=== PATIENT | female | born 2000 | race Hispanic/Latino ===

== ENCOUNTER 2021-12-20 18:19 | Emergency (ER) | payer MEDICAID ==
[~2021-12-20] VITALS: Ht 162.6 cm; Wt 93.9 kg
[2021-12-20 18:20] VITALS: BP 123/75
[2021-12-20 18:41] LABS: BILIRUBIN,URINE Negative (NEGATIVE); COLOR,URINE Yellow (YELLOW); GLUCOSE, URINE (UA) Negative (NEGATIVE); KETONES,URINE Trace mg/dL (NEGATIVE); LEUKOCYTE ESTERASE ,URINE Moderate (NEGATIVE); NITRATE,URINE Negative (NEGATIVE); OCCULT BLOOD,URINE Negative (NEGATIVE); PROTEIN,URINE Negative (NEGATIVE)
[2021-12-20 18:45] LABS: APPEARANCE,URINE SLIGHTLY CLOUDY (CLEAR)
[2021-12-20] MEDS ORDERED: CEFTRIAXONE 1G VIAL IM ONE (19:00)
[2021-12-20] MEDS ORDERED: PHENAZOPYRIDINE HCL 200 MG TABLET PO ONE (19:00)
[2021-12-20] MEDS ORDERED: LIDOCAINE HCL-MPF 1% 2ML VIAL ONE (19:28)
[2021-12-20 19:29] LABS: BACTERIA,URINE Moderate /HPF (None Seen); MUCUS,URINE Rare LPF (None Seen); RBC,URINE 0-1 /HPF (0-1); SQUAMOUS EPITHELIAL CELL,UR Moderate /HPF (0-2)
[2021-12-20 19:30] LABS: BASOPHILS % (AUTO) 0.1 % (0.0-5.0); EOSINOPHILS % (AUTO) 0.9 % (0.0-8.0); HEMATOCRIT 38.8 % (36-48); LYMPHOCYTES % (AUTO) 22.2 % (21.0-51.0); MEAN CORPUSCULAR HEMOGLOBIN 28.4 pg (27.0-33.0); MEAN CORPUSCULAR VOLUME 86.2 fL (79-99); MONOCYTES % (AUTO) 7.5 % (3.0-13.0); NEUTROPHILS % (AUTO) 68.7 % (40.0-77.0); PLATELET COUNT (AUTO) 330 K/uL (130-400); RED CELL DISTRIBUTION WIDTH 13.9 % (11.0-15.5); WHITE BLOOD COUNT (AUTO) 8.7 K/uL (4.8-10.8)
[2021-12-20 19:42] LABS: ALBUMIN 3.2 g/dL (3.5-5.0); BILIRUBIN,TOTAL 0.2 mg/dL (0.2-1.0); CREATININE 0.6 mg/dL (0.5-1.5); CRP QUANTITATIVE 15.8 mg/L (0.00-9.0); POTASSIUM 4.3 mmol/L (3.5-5.1); TOTAL PROTEIN, SERUM 7.2 g/dL (6.0-8.3)
[2021-12-20] MEDS ORDERED: CEPH500B PO (19:54)
[2021-12-20] MEDS ORDERED: PREN-61 PO (19:54)
[2021-12-20] MEDS ORDERED: PHEN-775 PO (19:54)
== END 2021-12-20 20:22 | disposition home or self-care (01) ==
LOC: EDH 18:19
DX: O23.42 Unspecified infection of urinary tract in pregnancy, second trimester (principal); Z3A.15 15 weeks gestation of pregnancy; Z87.442 Personal history of urinary calculi
CPT/HCPCS: 36415; 76805; 80053; 81001; 84702; 84703; 85025; 86140; 87077; 87088; 87186; 96372; 99284; J0696; J3490

== ENCOUNTER 2024-03-25 13:20 | Emergency (ER) | payer MEDICAID, OTHER ==
[~2024-03-25] VITALS: Ht 162.6 cm; Wt 99.8 kg
[~2024-03-25 13:20] MED LIST: CEPH500B PO; PHEN-775 PO; PREN-61 PO
[2024-03-25 13:33] VITALS: BP 134/77; PULSE 73; RESP 16
[2024-03-25 14:30] LABS: APPEARANCE,URINE CLEAR (CLEAR); BILIRUBIN,URINE NEGATIVE (NEGATIVE); COLOR,URINE LIGHT-YELLOW (YELLOW); GLUCOSE, URINE (UA) NEGATIVE (NEGATIVE); KETONES,URINE NEGATIVE (NEGATIVE); LEUKOCYTE ESTERASE ,URINE 75 Leu/uL (NEGATIVE); NITRATE,URINE NEGATIVE (NEGATIVE); OCCULT BLOOD,URINE NEGATIVE (NEGATIVE); PH,URINE 6.5 (5.0-8.0); PROTEIN,URINE NEGATIVE (NEGATIVE); UROBILINOGEN,URINE 0.2 mg/dL (0.2-1.0)
[2024-03-25 14:44] LABS: HCG,QUALITATIVE URINE POSITIVE (NEGATIVE)
[2024-03-25 14:46] LABS: ADD UA MICROSCOPIC YES
[2024-03-25 14:51] LABS: MUCUS,URINE RARE LPF (None Seen); SQUAMOUS EPITHELIAL CELL,UR RARE /HPF (0-2)
[2024-03-25] MEDS ORDERED: CEPH500B PO (15:35)
[2024-03-25] MEDS: CEFTRIAXONE 1G VIAL IVPB STA (15:38)
== END 2024-03-25 16:42 | disposition home or self-care (01) ==
LOC: EDH 13:20
DX: O23.41 Unspecified infection of urinary tract in pregnancy, first trimester (principal); E66.9 Obesity, unspecified; Z79.899 Other long term (current) drug therapy; Z98.890 Other specified postprocedural states; Z3A.01 Less than 8 weeks gestation of pregnancy; R10.2 Pelvic and perineal pain
CPT/HCPCS: 99285; 96374; 76801; 84702; 86900; 86901; 87088; 81001; 81025; 36415; J0696

== ENCOUNTER 2024-10-31 13:55 | Emergency (ER) | payer OTHER ==
[~2024-10-31] VITALS: Ht 162.6 cm; Wt 99.8 kg
--- NOTE | 2024-10-31 14:26 | ERN ---
ED Note History of Present Illness Stated Complaint: ABD PAIN Chief Complaint: Abdominal Pain Time Seen by MD: 14:49 Dictation: This is a 24-year-old female with a past medical history of kidney stones, miscarriage [around March- February,], obesity who presented to the ER with the complaints of lower abdominal pain. She states that she has started experiencing constant, squeezing type lower abdominal pain since yesterday night after consuming food. She denies headache, dizziness, nausea, vomiting, chest pain, palpitations, shortness of breath, constipation/diarrhea, burning sensation when urinating or increased frequency of urination, abnormal vaginal discharge, genital rashes. Her last menstrual period was on 20 October 2024. Allergies: Coded Allergies: No Known Allergies (Unverified Allergy, Unknown, 12/20/21) Home Meds Active Scripts Cephalexin Monohydrate (Keflex) 500 Mg Cap, 1 CAP PO BID for 10 Days, #20 CAP 0 Refills Prov:RUSTY MARTINEZ MD 10/31/24 Phenazopyridine HCl (Pyridium) 100 Mg Tablet, 100 MG PO TID for 3 Days, #9 TAB Prov:LY RAMIREZ 12/20/21 Vit No.78/Iron/FA (Prenatabs FA Tablet) 1 Each Tablet, 1 EACH PO DAILY, #100 TAB Prov:LY RAMIREZ 12/20/21 Discontinued Scripts Cephalexin Monohydrate (Keflex) 500 Mg Cap, 500 MG PO QID for 14 Days, #28 CAP Prov:JUAN GORDON 03/25/24 Cephalexin Monohydrate (Keflex) 500 Mg Cap, 500 MG PO TID for 7 Days, #21 CAP Prov:LY RAMIREZ 12/20/21 Past Medical History Past Medical History: No Pertinent History Additional Past Medical Hx: Obesity, kidney stones Surgical History: Surgical History Other: NASAL Family History: Negative Social History: Negative LMP: Oct 20, 2024 : 3 Para: 2 Aborts: 1 Review of System Dictation Constitutional: No appetite loss, No fevers, chills , No night sweats, No weakness, fatigue Neck: No swelling. pain or stiffness Respiratory: No cough, shortness of breath, wheezing Cardiovascular: No chest pain,, palpitations, dyspnea, No edema Gastrointestinal: pain in umbilical region and pelvic pain, No nausea, vomiting, No diarrhea, constipation Genitourinary: No painful urination, No blood in urine, No urinary incontinence, No frequency or urgency Musculoskeletal: No joint pain, muscle pain, swelling or stiffness, Neurological: No numbness, tingling, No weakness, tremors or seizures Psychiatric: : No depression, No anxiety, No sleep disturbance, No Memory changes Initial Vital Sign VS Vital Signs Date Time Temp Pulse Resp B/P (MAP) Pulse Ox O2 Delivery O2 Flow Rate FiO2 10/31/24 13:56 99.1 95 18 150/98 100 Room Air 0 10/31/24 14:18 21 Physical Exam Dictation Physical Exam Dictation VITAL SIGNS: Reviewed. GENERAL APPEARANCE: Alert, oriented x3, no acute distress, obese. HEAD AND FACE: Non-traumatic. EYES: PERRL, pink conjunctivas, eyelid no trauma, anterior chamber clear. EARS: Pinnas intact and no signs of trauma or erythema. Ear canals clear and no discharge. TMs no erythema. NOSE: No discharge, no bleeding. OROPHARYNX: Mouth normal, teeth no caries, tongue pink. Pharynx clear, no erythema. Tonsils no exudates, no abscesses noted. Mucous membrane moist. NECK: Supple, non-tender, no thyromegaly, no masses, no JVD, no bruits. BREAST: Deferred. CHEST: No tenderness, no crepitus, no paradoxical movement, no retractions. LUNGS: Clear, well-ventilated, symmetric, no rales, no wheezing, no rhonchi, no stridor, good breath sounds bilaterally. HEART: Regular rate, regular rhythm, no murmur, no gallops. VASCULAR: No peripheral edema. ABDOMEN: Soft, positive bowel sounds, nondistended, no guarding,mild tenderness in umbilical region and pelvic region, no rebound, no masses no hepatomegaly, no splenomegaly, no Hood's sign, no hernias. RECTAL: Deferred. GENITAL: Deferred. NEUROLOGICAL: Normal speech, gross motor function intact, gross sensory function intact. MUSCULOSKELETAL: Neck nontender, full range of motion, back nontender, full range of motion. EXTREMITIES: Nontender, full range of motion. SKIN: Color pink, dry, no turgor, no rash, no lacerations, no abrasions, no contusions. LYMPHATICS: Deferred. Results (Laboratory/Radiology) Laboratory/Radiology Laboratory Tests Test 10/31/24 14:04 10/31/24 14:15 10/31/24 15:09 Urine Color LIGHT-YELLOW (YELLOW) Urine Appearance CLEAR (CLEAR) Urine pH 6.5 (5.0-8.0) Urine Specific [place] 1.016 (1.001-1.031) Urine Protein NEGATIVE mg/dL (NEGATIVE) Urine Glucose (UA) NEGATIVE mg/dL (NEGATIVE) Urine Ketones NEGATIVE mg/dL (NEGATIVE) Urine Occult Blood NEGATIVE (NEGATIVE) Urine Nitrate NEGATIVE (NEGATIVE) Urine Bilirubin NEGATIVE mg/dL (NEGATIVE) Urine Urobilinogen 0.2 mg/dL (0.2-1.0) Urine Leukocyte Esterase 75 Yair/uL (NEGATIVE) H Urine RBC 0-1 /HPF (0-1) Urine WBC 2-5 /HPF (0-1) H Urine Squamous Epithelial Cells FEW /HPF (0-2) Urine Bacteria None /HPF (None Seen) Urine HCG, Qualitative NEGATIVE (NEGATIVE) White Blood Count 11.8 K/uL (4.8-10.8) H Red Blood Count 4.67 MIL/uL (4.00-5.50) Hemoglobin 11.3 g/dL (12.0-16.0) L Hematocrit 35.7 % (36-48) L Mean Corpuscular Volume 76.4 fL (79-99) L Mean Corpuscular Hemoglobin 24.2 pg (27.0-33.0) L Mean Corpuscular Hemoglobin Concent 31.7 g/dL (32.0-36.0) L Red Cell Distribution Width 15.9 % (11.0-15.5) H Platelet Count 406 K/uL (130-400) H Mean Platelet Volume 9.0 fL (7.5-10.5) Immature Granulocyte % (Auto) 0.3 % (0-1) Neutrophils (%) (Auto) 73.0 % (40.0-77.0) Lymphocytes (%) (Auto) 18.4 % (21.0-51.0) L Monocytes (%) (Auto) 7.0 % (3.0-13.0) Eosinophils (%) (Auto) 1.0 % (0.0-8.0) Basophils (%) (Auto) 0.3 % (0.0-5.0) Neutrophils # (Auto) 8.6 K/uL (1.8-7.7) H Lymphocytes # (Auto) 2.2 K/uL (1.0-4.8) Monocytes # (Auto) 0.8 K/uL (0.1-1.0) Eosinophils # (Auto) 0.12 K/uL (0.00-0.70) Basophils # (Auto) 0.03 K/uL (0.00-0.20) Absolute Immature Granulocyte (auto 0.04 K/uL (0-1) Nucleated Red Blood Cells 0.0 % (0.0-0.19) Red Blood Cell Morphology See comments Lipase 25 U/L (16-77) Sodium Level 140 mmol/L (136-145) Potassium Level 3.6 mmol/L (3.5-5.1) Chloride Level 103 mmol/L (101-111) Carbon Dioxide Level 32 mmol/L (21-32) Blood Urea Nitrogen 10 mg/dL (7-18) Creatinine 0.6 mg/dL (0.5-1.0) Glomerular Filtration Rate Calc 128 mL/min (>90) Random Glucose 97 mg/dL (70-105) Total Calcium 8.8 mg/dL (8.5-10.1) Total Bilirubin 0.4 mg/dL (0.2-1.0) Aspartate Amino Transf (AST/SGOT) 14 U/L (10-37) Alanine Aminotransferase (ALT/SGPT) 17 U/L (12-78) Alkaline Phosphatase 78 U/L (50-136) Total Protein 7.0 g/dL (6.0-8.3) Albumin 3.4 g/dL (3.5-5.0) L Ultrasound Comment: PROCEDURE: PELVCOMP - US PELVIC NON-OB COMP Exam Type: US PELVIC NON-OB COMP Findings: The examination shows an anteverted uterus which is normal in size and echogenicity. It measures 10.6 x 4.6 x 7.1 cm. The endometrial lining is normal in thickness. It measures 2 mm. No intrauterine or ectopic seen. The ovaries are normal in size and echogenicity. The right ovary measures 3.6 x 1.6 x 2.6 cm. The left ovary measures 4 x 1.7 x 3.9 cm. Vascular Doppler flow exam and spectral analysis of waveforms analysis is unremarkable bilaterally. There is preserved vascularity to both ovaries on Doppler evaluation. Specifically, there is no evidence of ovarian torsion. No free fluid is noted throughout the cul-de-sac. There are no adnexal abnormalities. No other significant abnormalities are seen. No fluid collections or masses or free fluid are identified in the pelvis. Impression: NORMAL EXAM. No evidence of uterine pathology. No evidence of adnexal abnormalities or ovarian torsion. No intrauterine or ectopic seen. ED Course ED Course Orders Procedure Category Date Status Time Vital Signs Per CPOE 10/31/24 Transmitted Routine 14:05 Saline Lock Iv CPOE 10/31/24 Transmitted 14:05 Cbc With Differential LAB 10/31/24 Complete 14:05 Lipase LAB 10/31/24 Complete 14:05 Urinalysis Profile LAB 10/31/24 Complete 14:05 ,Urine Test LAB 10/31/24 Complete 14:17 Basic Metabolic Panel LAB 10/31/24 Logged 14:41 Us Pelvic Non-Ob Comp US 10/31/24 Resulted 14:44 Comprehensive LAB 10/31/24 Complete Metabolic Panel 14:46 Culture Urine JIN 10/31/24 In Process 14:56 Ketorolac PHA 10/31/24 In Process Tromethamine 15mg/Ml 17:00 Current Medications Medications (Trade) Dose Ordered Sig/Tyler Route PRN Reason Start Time Stop Time Status Last Admin Dose Admin Ketorolac Tromethamine (toRADol) 15 mg ONCE ONCE IV 10/31/24 17:00 10/31/24 17:01 Vital Signs Date Time Temp Pulse Resp B/P (MAP) Pulse Ox O2 Delivery O2 Flow Rate FiO2 10/31/24 15:10 98.8 95 20 125/64 100 Room Air* 0 21 10/31/24 14:18 99.1 112 20 128/62 98 Room Air* 0 21 10/31/24 13:56 99.1 95 18 150/98 100 Room Air 0 Medical Decision Making [facility] MDM Potential differential diagnoses include: UTI Gastroenteritis Diverticulitis Appendicitis Assessment: We will order CBC to to rule any anemia, infections and to evaluate the overall health of the patient. CMP was ordered in order to assess various electrolytes, kidney function, liver function ,protein levels and blood glucose levels, I will re-evaluate the patient after treatment and diagnostic exams have returned to determine whether they require further testing, can be safely discharged home, or need admission for further treatment and evaluation. Given the social determinants of health affecting care, including literacy, access to medical care, prescription drug management, and [id number] drugs, I will ensure that treatment plans are tailored accordingly. Revaluation : PATIENT IS ALERT AWAKE AND ORIENTED. SHE IS HEMODYNAMICALLY STABLE. HER PELVIC PAIN HAS IMPROVED. SHE IS ABLE TO TOLERATE ORAL FEEDS WITHOUT ANY NAUSEA OR VOMITING. SHE IS ABLE TO AMBULATE COMFORTABLY WITHOUT ANY DIZZINESS. LABS WBC 11.8, URINALYSIS POSITIVE FOR LEUKOCYTE ESTERASE INDICATING UTI. PELVIC ULTRASOUND RESULTED IN NO ACUTE FINDINGS. Disposition: Patient is being discharged home with oral prescription of Keflex 500 mg p.o. b.i.d. for 10 days for UTI. Advised to Follow up with PCP within 2-3 days Complete the antibiotic course as prescribed Take [id number] medications like Tylenol/ibuprofen for pain p.r.n. as needed Monitor for symptoms like high fever, severe abdominal/flank pain, blood in the urine, nausea, vomiting, worsening of the present symptoms or new symptoms and seek immediate medical attention in such scenario. DX & DISP Disposition: Discharge Departure Impression: Primary Impression: UTI (urinary tract infection) Additional Impression: Pelvic pain Condition: Stable Scripts Cephalexin Monohydrate (Keflex) 500 Mg Cap 1 CAP PO BID for 10 Days, #20 CAP 0 Refills Prov: RUSTY MARTINEZ MD 10/31/24 Referrals: NONE (PCP) ATTESTATION BY PHYSICIAN I have seen and examined the patient. I reviewed the documentation, medical decision making, and treatment plan as noted by the resident above. I agree with the findings and plan of care. BRIAN RAMOS MD, PRIYANKA MD Oct 31, 2024 14:26
[2024-10-31 14:32] LABS: BASOPHILS # (AUTO) 0.03 K/uL (0.00-0.20); BASOPHILS % (AUTO) 0.3 % (0.0-5.0); EOSINOPHILS # (AUTO) 0.12 K/uL (0.00-0.70); HEMATOCRIT 35.7 % (36-48); IMMATURE GRANULOCYTE ABSOLUTE 0.04 K/uL (0-1); LYMPHOCYTES # (AUTO) 2.2 K/uL (1.0-4.8); LYMPHOCYTES % (AUTO) 18.4 % (21.0-51.0); MEAN CORPUSCULAR HEMOGLOBIN 24.2 pg (27.0-33.0); MEAN CORPUSCULAR HGB CONC 31.7 g/dL (32.0-36.0); MEAN CORPUSCULAR VOLUME 76.4 fL (79-99); MONOCYTES # (AUTO) 0.8 K/uL (0.1-1.0); NEUTROPHILS # (AUTO) 8.6 K/uL (1.8-7.7); PLATELET COUNT (AUTO) 406 K/uL (130-400); RED BLOOD CELL COUNT(AUTO) 4.67 MIL/uL (4.00-5.50); RED CELL DISTRIBUTION WIDTH 15.9 % (11.0-15.5); WHITE BLOOD COUNT (AUTO) 11.8 K/uL (4.8-10.8)
[2024-10-31 14:47] LABS: APPEARANCE,URINE CLEAR (CLEAR); BILIRUBIN,URINE NEGATIVE (NEGATIVE); COLOR,URINE LIGHT-YELLOW (YELLOW); GLUCOSE, URINE (UA) NEGATIVE (NEGATIVE); KETONES,URINE NEGATIVE (NEGATIVE); LEUKOCYTE ESTERASE ,URINE 75 Leu/uL (NEGATIVE); NITRATE,URINE NEGATIVE (NEGATIVE); OCCULT BLOOD,URINE NEGATIVE (NEGATIVE); PH,URINE 6.5 (5.0-8.0); PROTEIN,URINE NEGATIVE (NEGATIVE); UROBILINOGEN,URINE 0.2 mg/dL (0.2-1.0)
[2024-10-31 14:56] LABS: ADD UA MICROSCOPIC YES
[2024-10-31 15:00] LABS: RBC,URINE 0-1 /HPF (0-1); SQUAMOUS EPITHELIAL CELL,UR FEW /HPF (0-2)
[2024-10-31 15:52] LABS: ALBUMIN 3.4 g/dL (3.5-5.0); BILIRUBIN,TOTAL 0.4 mg/dL (0.2-1.0); CREATININE 0.6 mg/dL (0.5-1.0); POTASSIUM 3.6 mmol/L (3.5-5.1)
--- NOTE | 2024-10-31 16:31 | HMCIMG ---
Exam Type: US PELVIC NON-OB COMP Findings: The examination shows an anteverted uterus which is normal in size and echogenicity. It measures 10.6 x 4.6 x 7.1 cm. The endometrial lining is normal in thickness. It measures 2 mm. No intrauterine or ectopic seen. The ovaries are normal in size and echogenicity. The right ovary measures 3.6 x 1.6 x 2.6 cm. The left ovary measures 4 x 1.7 x 3.9 cm. Vascular Doppler flow exam and spectral analysis of waveforms analysis is unremarkable bilaterally. There is preserved vascularity to both ovaries on Doppler evaluation. Specifically, there is no evidence of ovarian torsion. No free fluid is noted throughout the cul-de-sac. There are no adnexal abnormalities. No other significant abnormalities are seen. No fluid collections or masses or free fluid are identified in the pelvis. Impression: NORMAL EXAM. No evidence of uterine pathology. No evidence of adnexal abnormalities or ovarian torsion. No intrauterine or ectopic seen.
[2024-10-31] MEDS ORDERED: CEPH500B PO (16:47)
[2024-10-31] MEDS: ketOROlac 15MG/ML VIAL (15MG/ML) IV ONE (17:12)
[2024-10-31 17:14] VITALS: BP 128/82; PULSE 82; RESP 20; TEMP 98.8; O2SAT 100
== END 2024-10-31 17:20 | disposition home or self-care (01) ==
LOC: EDH 13:55
DX: N39.0 Urinary tract infection, site not specified (principal); R10.2 Pelvic and perineal pain; E66.9 Obesity, unspecified; Z68.37 Body mass index [BMI] 37.0-37.9, adult
CPT/HCPCS: 99285; 96374; 76856; 80053; 83690; 85025; 87086; 81001; 81025; 36415; J1885